=== PATIENT | female | born 1945 | race Caucasian/White ===

== ENCOUNTER → 2018-06-17 | Outpatient (CLI) | payer OTHER ==
[~2018-06-17] MED LIST: IBUPROFEN 800800 M1 PO; LIPITOR20 MG; NORCO 5-325 TA1 EACH PO; TYLENOL ARTHRI650 MG PO
== END ==
LOC: M.RAD 06-10 13:30
DX: M85.89 Other specified disorders of bone density and structure, multiple sites (principal); I10 Essential (primary) hypertension; Z78.0 Asymptomatic menopausal state

== ENCOUNTER → 2019-05-27 | Outpatient (CLI) | payer OTHER, SELFPAY | LOC: M.ULTRA 12:59 | DX: I65.23 Occlusion and stenosis of bilateral carotid arteries (principal); R42 Dizziness and giddiness ==

== ENCOUNTER → 2020-05-25 | Outpatient (CLI) | payer MEDICARE | LOC: M.MRI 13:23 | PROVIDERS: ATTEND Family Medicine | DX: R90.82 White matter disease, unspecified (principal); I73.9 Peripheral vascular disease, unspecified; R27.8 Other lack of coordination ==